=== PATIENT | male | born 1975 | race Caucasian/White ===

== ENCOUNTER 2024-01-23 20:02 | Emergency (ER) | payer BC, SELFPAY ==
--- NOTE | 2024-01-23 20:58 | ED.GENMED ---
History of Present Illness
General
Chief Complaint: Musculo-Skeletal Complaint
Source: patient
Exam Limitations: none
Time Seen by Provider: 01/23/24 20:06
Nursing documentation reviewed up to this point in time: agreed with
History of Present Illness
History of Present Illness:
48-year-old male presenting to the emergency department due to pain in his left fifth toe. Patient states he stubbed his toe into a metal table on Saturday night and has had pain in his left toe since. He states pain has been manageable and he has
been able to ambulate. However�symptoms have persisted and today had a mild numbness sensation prompting his visit to the emergency department.
Patient denies any other injuries sustained.
Review of Systems
Review of Systems
Allergies reviewed?: Yes
All Other Systems: ROS reviewed and negative except as documented in HPI and ROS
Phy Exam
Physical Exam
Physical Exam:
Vitals: Patient's vital signs are stable. Afebrile
General: Patient is well appearing, no acute distress
Skin: Warm and dry, no rashes or lesions
Head: Normocephalic, atraumatic
Throat: Protecting airway
Neck: Normal ROM, no cervical spine tenderness
Cardiac: Regular rate
Pulm: No apparent respiratory distress
Abdomen: Nondistended
Extremities: Edema and ecchymoses of left fifth toe. Tenderness most notable at 5th MTP joint. No tenderness at base of left fifth metatarsal. Sensation fully intact. Palpable DP pulses.
Neuro: Grossly intact
Psychiatric: Normal affect.
Course
Orders/Labs/Results
Orders:
Orders
01/23/24 20:04
CR Toe(s) Min 2 Vw Left Urgent
Comment:
Reason For Exam: injury, pain
Indicate Which Toe:: Fifth
01/23/24 20:46
Mitzy Tape Left-Treatment ONCE
Cast Shoe Left-Treatment ONCE
Vital Signs
Initial and Last Documented VS:
Initial Vital Signs
Temp Pulse Resp
98.3 F 80 18
01/23/24 20:03 01/23/24 20:03 01/23/24 20:03
Last Documented Vital Signs
Temp Pulse Resp BP
98.3 F 80 17 131/82
01/23/24 20:03 01/23/24 21:30 01/23/24 21:30 01/23/24 21:30
MDM/Problems Addressed
Differential Diagnosis Includes:
Not limited to: Toe fracture, toe sprain, toe contusion, Holder fracture, etc.
MDM/Problems Addressed:
48-year-old male with injury to left fifth toe sustained 4 days ago when he stubbed it into a table. No others sustained injuries. Patient has been ambulating with minimal pain. Vital stable. On exam�patient is well-appearing, in no apparent
distress. There is notable ecchymoses surrounding base of left fifth toe at MTP joint with localized tenderness. He has no tenderness at base of left fifth metatarsal. Sensation is fully intact. Left lower extremity neurovascularly intact with
palpable DP pulse. X-ray was obtained which shows a mildly displaced fracture of the proximal phalanx of left fifth digit. Will mitzy tape and place patient in cast shoe. Recommend ice, elevation, NSAIDs for pain. Will give name for orthopedics
for follow-up if needed. Patient stable for discharge. Case discussed with attending physician
Chronic conditions affecting care:
N/A
Acute Exacerbation and/or Progression of Chronic Illness:
N/A
*Radiology
Radiology exam reviewed: preliminary read by ED provider (Mildly displaced fracture of the proximal phalanx of left fifth toe) and radiology read reviewed
*Pulse Oximetry
Patient hypoxic: no
*EKG
Interpreted by ED Provider?: NA
*Director Of Catering Sales Interpretation
Rate: Director Of Catering Sales- N/A
*Critical Care Note
Total Time (30-74mins, 75-104mins- exclusive of procedures): Not Applicable
ED Attending Note
-
Portions of this chart may have been created with voice recognition software.� Occasional wrong word or��sound alike� substitutions may have occurred due to the inherent limitations of voice recognition software.
Discharge Plan
Departure
Patient Disposition: Home (Routine Discharge)
Date of Disposition: 01/23/24
Time of Disposition: 21:15
Patient with high blood pressure during this ER visit?: No
Condition: Good
Covid-19: Not Applicable
Discharge Problem:
Fracture of fifth toe, left, closed
Instructions: Toe Fracture ED
Referrals:
NONE,* [Active] -
Activity Restrictions/Additional Instructions:
RETURN TO THE EMERGENCY DEPARTMENT WITH ANY INTRACTABLE PAIN, NUMBNESS/TINGLING IN RIGHT TOE, WORSENING IN CURRENT SYMPTOMS, OR ANY OTHER CONCERNS
-As discussed�your x-ray showed a fracture of your fifth toe.
-You should apply mitzy tape, keep foot in cast shoe. Continue to ice and elevate your left foot. Take Tylenol and/or Motrin as needed for pain.
-Take it easy, avoid activities that put further strain on foot.
-Follow-up with your orthopedic if symptoms persist/for further evaluation as needed
Monitor your symptoms closely return to the emergency department with any acute worsening/new symptoms or any other concerns
Interventions
Interventions:
*Risk Screen - Suicide Last Done: 01/23/24 20:03
*General Assessment Last Done: 01/23/24 20:03
*Neglect/Abuse Screening Last Done: 01/23/24 20:03
*ED COVID-19 Vaccine History Last Done: 01/23/24 20:03
*Nursing Disposition Last Done: 01/23/24 21:31
ED-Musculoskeletal Assessment Last Done: 01/23/24 21:28
Discharge Date and Time
Discharge Date/Time: 01/23/24 21:31
Print Language: [place]
[2024-01-23 21:30] VITALS: BP 131/82
== END 2024-01-23 21:31 | disposition home or self-care (01) ==
LOC: EMR 20:02
PROVIDERS: EMERGENCY PHYSICIAN Emergency Medicine
DX: S92.512A Displaced fracture of proximal phalanx of left lesser toe(s), initial encounter for closed fracture (principal); W22.03XA Walked into furniture, initial encounter; M79.675 Pain in left toe(s)
CPT/HCPCS: 99283; 73660